=== PATIENT | male | born 1935 | race Caucasian/White ===

== ENCOUNTER 2019-08-01 14:36 | Inpatient (IN) | payer OTHER, MEDICAID ==
[~2019-08-01] VITALS: Ht 160 cm; Wt 59.0 kg
--- NOTE | 2019-08-01 14:41 | NUR ---
Patient to ER bed 04 to gown for evaluation. Side rails up.
[2019-08-01 14:42] VITALS: BP_SYST 148
--- NOTE | 2019-08-01 14:42 | NUR ---
Patient is awake, alert, and oriented x4. Patient was seen by his PCP physician last week for an incision to a sacral ulcer and sent home. Ulcer is not improving.
--- NOTE | 2019-08-01 14:44 | NUR ---
HUMBLE Castellanos at bedside examining patient.
[2019-08-01 15:17] LABS: BASOPHILS % (AUTO) 0.2 % (0.0-2.0); EOSINOPHILS % (AUTO) 0.2 % (0.0-4.0); HEMATOCRIT 36.7 % (36-54); HEMOGLOBIN 12.4 g/dL (14.0-18.0); LYMPHOCYTES # (AUTO) 1.1 K/uL (1.0-5.5); LYMPHOCYTES % (AUTO) 11.8 % (20.5-51.5); MEAN CORPUSCULAR HEMOGLOBIN 31 pg (27-31); MEAN CORPUSCULAR HGB CONC 34 % (32-36); MEAN CORPUSCULAR VOLUME 93 fL (79.0-98.0); MONOCYTES # (AUTO) 0.7 K/uL (0.0-1.0); MONOCYTES % (AUTO) 8.1 % (1.7-9.3); NEUTROPHILS # (AUTO) 7.2 K/uL (1.8-7.7); NEUTROPHILS % (AUTO) 79.7 % (40.0-70.0); PLATELET COUNT (AUTO) 235 K/uL (130-430); RED BLOOD CELL COUNT(AUTO) 3.95 MIL/uL (4.2-6.2); RED CELL DISTRIBUTION WIDTH 15.9 % (9.0-15.0)
--- NOTE | 2019-08-01 15:19 | NUR ---
2 unsuccessful IV attempts made. FESTUS Guerrero to attempt.
[2019-08-01 15:34] LABS: ANION GAP 8 (5-15); CHLORIDE 100 mmol/L (98-107); CREATININE 0.93 mg/dL (0.55-1.30); GLUCOSE 203 mg/dL (70-99); POTASSIUM 3.4 mmol/L (3.5-5.1); SODIUM SERUM 134 mmol/L (136-145); UREA NITROGEN, BLOOD 37 mg/dL (8-21)
[2019-08-01] MEDS ORDERED: GLU850 PO (15:39)
[2019-08-01] MEDS ORDERED: VITD2000 PO (15:39)
[2019-08-01] MEDS ORDERED: ASCO500T20 PO (15:39)
[2019-08-01] MEDS ORDERED: MULT-1089 PO (15:39)
[2019-08-01] MEDS ORDERED: GLUXR500 PO (15:39)
[2019-08-01] MEDS ORDERED: IBUP-1970 PO (15:39)
[2019-08-01] MEDS ORDERED: GLIP2.5T3 PO (15:39)
[2019-08-01 15:41] LABS: ALANINE AMINOTRANSFERASE 11 U/L (12-78); ALBUMIN 2.3 g/dL (3.4-4.8); ASPARTATE AMINOTRANSFERASE 11 U/L (10-37); TOTAL BILIRUBIN 0.5 mg/dL (0.0-1.0)
--- NOTE | 2019-08-01 15:42 | NUR ---
Medication reconciliation completed with information provided by son-in-law. Any prior medication reconciliation on file was reviewed and corrected.
[2019-08-01] MEDS ORDERED: PIPERACILLIN/TAZO 3.375 GM in NS 50 ML IV ONE (15:45)
[2019-08-01] MEDS ORDERED: NACL 0.9% 1,000 ML IV ONE ×2 (15:45→16:00)
[2019-08-01] MEDS ORDERED: INSULIN REGULAR, HUMAN 100 UNITS/ML, 10 ML VIAL SUBCUT ONE (16:00)
[2019-08-01] MEDS ORDERED: VANCOMYCIN HCL 1,000 MG in NS 250 ML IV ONE (16:00)
[2019-08-01] MEDS ORDERED: VANCOMYCIN HCL 1000 MG/VIAL IV ONE (16:09)
[2019-08-01] MEDS ORDERED: PIPERACILLIN/TAZOBACTAM 3.375 GM/VIAL (ZOSYN) IV ONE (16:09)
[2019-08-01] MEDS ORDERED: INSULIN REGULAR, HUMAN 10 UNITS/0.1 ML INJ ONE (16:09)
--- NOTE | 2019-08-01 16:23 | NUR ---
Patient will be admitted to care of Dr. Garcia. Admitted to Med/Surg unit. Will go to room 134A. Belongings list completed. Summary report printed. Report will be given at bedside.
--- NOTE | 2019-08-01 16:30 | NUR ---
Patient transferred via gurney with RN, EMT, patent/intact IV to room 134A.
--- NOTE | 2019-08-01 16:32 | NUR ---
ADMISSION NOTE Received patient from ER via suresh, received report from Lance MORTENSEN. Patient admitted with diagnosis of Sepsis, Scaral Wound. Patient and family oriented to hospital routine, call light, toileting and safety-they verbalized their understanding.
--- NOTE | 2019-08-01 16:35 | NUR ---
adm notes rec patient from er with dx of sepsis, accompanied by son. ivf infusing well on the l lforearm. no inifltration noted. made patient comfortable. resp easy and unlabored. aletha osb noted. bed to the lowest position and side rails up and locked. call light withn reached.
[2019-08-01 16:39] LABS: BILIRUBIN,URINE NEGATIVE (NEGATIVE); BLOOD, URINE 2+ (NEGATIVE); CLARITY/URINE SL CLOUDY (CLEAR); COLOR,URINE YELLOW (YELLOW); GLUCOSE,URINE NEGATIVE (NEGATIVE); KETONES,URINE NEGATIVE (NEGATIVE); LEUKOCYTE ESTERASE ,URINE 3+ (NEGATIVE); NITRITE, URINE NEGATIVE (NEGATIVE); PH,URINE 5.5 (5.0-8.0); PROTEIN URINE TRACE (NEGATIVE); UROBILINOGEN,URINE 0.2 (0.2-1.0)
[2019-08-01 16:55] LABS: RBC,URINE 20-50 /HPF (0-3)
[2019-08-01 16:56] LABS: BACTERIA,URINE FEW /HPF (None Seen); WBC,URINE 50-80 /HPF (0-3)
[2019-08-01 17:03] VITALS: BP_SYST 121
[2019-08-01 17:06] VITALS: BP_SYST 121
[2019-08-01] MEDS: PIPERACILLIN/TAZO 3.375/DEX-IS 50 ML IV ONE ×2 (17:15→21:08)
[2019-08-01] MEDS ORDERED: DEXTROSE 50% JECT 50 ML DISP.SYRIN IVP PRN (17:15)
[2019-08-01 20:40] VITALS: BP_SYST 154
--- NOTE | 2019-08-01 20:40 | NUR ---
INITIAL NOTES: PATIENT IN BED RESTING QUITELY WITH EYES CLOSE. AWAKENED WHEN CALLED HIS NAME..ORIENTED X3. FOLLOWS COMMAND.DENIES PAIN NOR CHEST PAIN.HARNESS BUILDER REPORTED HAS LARGE SACRAL WOUND AFTER GIVING HIM JULIA CARE DUE TO URINE INCONTINENT, WITH DRAINAGE AND NEEDS TO CHANGE DRESSING. VITAL SIGNS TAKEN. SALINE LOCK TO LEFT FA IN PLACE WITH EMPTY 3 IV BAGS.WILL MONITOR CLOSELY. DENIES PAIN.
--- NOTE | 2019-08-01 20:50 | NUR ---
ZOSYN IVPB NOT GIVEN ,CHECKED PREVIOUS EMAR GIVE IN ER. BLOOD SUGAR RESULT.,128MG/DL. OFFER SNACKS .REFUSE.
--- NOTE | 2019-08-01 23:25 | NUR ---
SACRAL WOUND PHOTO AND OTHER AREAS TAKEN. WOUND CARE RENDERD. SEE ASSESSMENT SECTION FOR MORE DETAILS.
--- NOTE | 2019-08-02 | NUR ---
BLOOD SUGAR 120MG/DL. HAS TOLERABLE WOUND PAIN. DUE ABX INFUSED.
[2019-08-02] MEDS: PIPERACILLIN/TAZO 3.375/DEX-IS 50 ML IV SCH ×5 (00:17→23:37)
[2019-08-02 00:18] VITALS: BP_SYST 126
[2019-08-02] MEDS: INSULIN REGULAR, HUMAN 100 UNITS/ML, 10 ML VIAL (humuLIN R) SUBCUT PRN ×3 (00:21→23:41)
--- NOTE | 2019-08-02 02:30 | NUR ---
REPOSITIONED FOR COMFORTS. NO DISTRESS. CALL LIGHT WITHIN REACH.
--- NOTE | 2019-08-02 05:00 | NUR ---
JULIA CARE DONE BG QUINTIN JENSEN. TURNED TO SIDE.
[2019-08-02 06:10] LABS: ANION GAP 8 (5-15); CHLORIDE 102 mmol/L (98-107); GLUCOSE 125 mg/dL (70-99); SODIUM SERUM 137 mmol/L (136-145); UREA NITROGEN, BLOOD 26 mg/dL (8-21)
[2019-08-02 06:28] LABS: POTASSIUM 2.8 mmol/L (3.5-5.1)
--- NOTE | 2019-08-02 06:30 | NUR ---
CLOSING: BLOOD SUGAR 136MG/DL. NO ACUTE CARDIOPULMONARY DISTRESS.ALL NEEDS WERE ATTENDED. CRITICAL VALUE OF K LEVEL 2.8. PAGED DR. JEREZ EMPLOYMENT RECRUITER FOR DR. BA.
--- NOTE | 2019-08-02 06:39 | NUR ---
PAGED DR. JEREZ PER NURS SPOKE TO FARIHA DIALED [phone]
--- NOTE | 2019-08-02 07:00 | NUR ---
REQUEST VAMP THROATER TO PAGE AGAIN ,SAID ITS >0700 .DR. BA WILL BE HERE SOON.
--- NOTE | 2019-08-02 07:10 | NUR ---
[address] DR. BA PER NURSE SPOKE TO TIAN DIALED [phone]
[2019-08-02] MEDS ORDERED: POTASSIUM CHLORIDE 20 MEQ TAB.PRT.SR PO ONE ×2 (07:30→11:30)
[2019-08-02 08:00] VITALS: BP_SYST 140
--- NOTE | 2019-08-02 08:00 | NUR ---
RN INITIAL NOTES RECEIVED PATIENT IN BED NOT IN ANY DISTRESS VERBALLY VERBALLY RESPONSIVE , IV HL TO LEFT HAND INFILTRATED ,RESP EVEN AND UNLABORED , PATIENT CAME IN WITH NON HEALING WOUND TO SACRAL , AWAITING FOR THE WOUND CONSULT AND WILL CONT CARE, DR BA ORDERED POTASSIUM SUPPLEMENT AND WILL GIVE 40 MEQ X 4 HOURS INTERVAL, EXPLAINED PLAN OF CARE TO PATIENT , PATIENT IS FOR SURGICAL CONSULT AND SPOKE WITH DR RAMIN MD SAID HE WILL COME AND SEE PATIENT LATER.
--- NOTE | 2019-08-02 08:04 | NUR ---
IV RE-INSERTION: Complaining of IV site leaking . Restarted on . Successful after 1 attempt to left forearm g.22. Will observe for any signs of infiltration.
[2019-08-02] MEDS: glipiZIDE XL 2.5 MG/TAB (GLUCOTROL XL) PO SCH (09:09)
--- NOTE | 2019-08-02 09:57 | NUR ---
CONSULT ID DR. PEREZ CALLED SPOKE GRACY DIALED [phone] BA
--- NOTE | 2019-08-02 09:58 | NUR ---
CONSULT SURGERY DR. FAUSTIN CALLED SPOKE TO MD DIALED [phone] BA
--- NOTE | 2019-08-02 10:09 | NUR ---
Nutrition Update Raleigh Scale 13 noted. Pt admitted for sepsis and large sacral wound. Diet: [facility] BMI: 20.4 kg/m2 RD to follow per nutrition care standards.
--- NOTE | 2019-08-02 12:30 | NUR ---
SWALLOW EVAL ORDERED PATIENT SWALLOW EVAL ORDERED AND NO SIGN OF ASPIRATION TO PUDDING EATS POORLY, WILL CONT TO OFFER MEALS
[2019-08-02 13:10] VITALS: BP_SYST 117
--- NOTE | 2019-08-02 13:39 | NUR ---
SWALLOW EVALUATION CALLED NASRIN LEFT A VOICE MESSAGE DIALED [phone]
--- NOTE | 2019-08-02 13:54 | NUR ---
Dietitian Recommendations * Recommend CCHO, mechanical soft, chopped diet w/ Glucerna BID, Johan BID, Prosource BID (ONS and modulars provide 740 kcal/day, 55 gm protein/day) YURIDIA, RD Please refer to Nutrition Assessment for details. Addendum: 08/02/19 at 1355 [address] Amended: Links added.
--- NOTE | 2019-08-02 15:20 | NUR ---
WOUND EVALUATION: Late note for 152 secondary to patient care. Wound Consult received from Dr. Garcia. Thank you, Dr. Garcia, for the consult. Patient received in a Jyothi Bed with an Isoflex MELISSA mattress with low air loss therapy initiated, awake, alert, and oriented. Patient is able to turn in bed with assist. Raleigh Score is a 13. Past Medical History: Diabetes Mellitus, Hypertension, bedbound status, wound debridement. Recent Labs: WBC 9.0, RBC 3.95, hemoglobin 12.4, hematocrit 36.7, potassium 2.8, BUN 26, creatinine 0.70, glucose 125, POC glucose 160, albumin 2.3. Microbiology: Blood culture results 2 in progress. Wound culture results in progress. Urine culture results in progress. MRSA screen results in progress. Intrinsic factors that delay wound healing: Diabetes Mellitus, Hypoalbuminemia. Extrinsic factors that delay wound healing: Decreased mobility. Wound Assessment: 1. Sacral area: Stage IV pressure ulcer, present on admission. Wound bed has 50% yellow slough, 40% pink tissue, 10% black slough. Mild odor, scant sanguineous drainage. Periwound has 100% underminin.0 cm at 12 oclock; 1.9 cm at 3 oclock; 2.6 cm at 6 oclock; 0.7 cm at 9 oclock. Surrounding tissue inferior to wound has dark discoloration and multiple small nonintact skin areas. Surrounding tissue around complete wound has dark discoloration. Wound measures 4.7 cm x 4.5 cm x 1.2 cm. 2. Right Sacral area: Pressure ulcer, present on admission (may be related to wound 1). Wound bed has 50% yellow tissue, 50% pink tissue. No odor, scant serous drainage. Periwound and surrounding tissue has dark discoloration and flaky skin. Wound measures 7.0 cm x 4.5 cm. 3. Left Sacral area: Pressure ulcer, present on admission (may be related to wound 1). Wound bed has 90% yellow tissue, 10% red tissue. No odor, scant serous drainage. Periwound and surrounding tissue has dark discoloration and flaky skin. Wound measures 4.0 cm x 6.0 cm. Recommend: Cleanse wounds with normal saline. Apply moisture barrier cream to livia-wounds. Cover wounds with non-adhesive foam dressings, secure with transparent dressings. Perform wound care daily, and as needed for dressing soiling or dislodgement. 4. Scrotum: Erythema from IAD, present on admission. Skin is intact. Recommend: Cleanse involved area with mild soap and water. Pat dry. Apply antifungal powder to involved area. Cradle scrotal area with Inter-Dry AG cloth and lift and elevate scrotum off of bed by pulling Inter-Dry AG through thighs. Apply antifungal powder BID. Change Inter-Dry AG cloth q 5 days and prn for soiling. 5. Right Plantar Foot: Dry flaky scaly skin, present on admission. 6. Left Plantar Foot: Dry flaky scaly skin, present on admission. Recommend: Cleanse feet with mild soap and water. Pat dry. Apply Eucerin cream to bilateral feet. Perform site care twice a day. 7. Right Heel: Blanchable erythema, present on admission. 8. Left Heel: Blanchable erythema, present on admission. Recommend: Float bilateral heels with HeeLift boots. Check HeeLift boots during hourly rounds to ensure that heels are floating, adjust HeeLift boots when necessary to ensure heels are floating. 9. Right Lateral Malleolus: Scar tissue with dark discolored skin, present on admission. 10. Right Distal Lateral Lower Extremity, Superior to Malleolus: Scar tissue with dark discolored skin, present on admission. Recommend: Cover sites with foam dressings. Change dressings and assessed sites daily, and when necessary for dressing soiling or dislodgment. Offload sites at all times. 11. Left Lateral Lower Extremity: Multiple, multiple dry scabs, present on admission. Recommend: Dressings needed. Continue to monitor site every shift. Also recommend: Encourage and assist patient with repositioning side to side only every 2 hours with pillow support and off-load pressure areas with pillows for pressure re-distribution. Offload, elevate and float bilateral heels with HeeLift boots. Perform skin care and monitor skin integrity Q shift. Use moisture barrier cream on buttocks and other moisture susceptible areas QID and as needed for soiling. Maintain patient on a low air-loss mattress.
[2019-08-02] MEDS ORDERED: VANCOMYCIN HCL 750 MG/NS 250 ML IV SCH (16:00)
--- NOTE | 2019-08-02 16:00 | NUR ---
WOUND NURSE CONSULT PATIENT SEEN PATIENT AND TREATMENT AND ASSESSMENT ,WILL CONT PLAN OF CARE , AWAITING FOR THE ID AND SURGEON SEE THE PATIENT
[2019-08-02 16:43] VITALS: BP_SYST 139
[2019-08-02] MEDS: MENTHOL/ZINC OXIDE 113 GM OINT. TP PRN ×2 (17:38→20:16)
[2019-08-02] MEDS: NYSTATIN 15 GM TOPICAL POWDER TP SCH ×2 (17:39→20:16)
[2019-08-02] MEDS: BALSAM PERU/CASTOR OIL 60 GM OINT...G. TP SCH (17:40)
[2019-08-02] MEDS: EMOLLIENT COMBINATION NO.73 78 GM CREAM..G. TP SCH ×2 (17:46→20:17)
--- NOTE | 2019-08-02 18:45 | NUR ---
END RN NOTES PATIENT CONT CARE [PATIENT WOUND DRESSING DONE , PATIENT IS ALERT AND AWARE PLAN OF CARE , PATIENT VISITED BY FAMILY AND AWARE THAT PATIENT STILL WAITING FOR ID CONSULT AN SURGEON , CONT ON IV ATB AND NO AR NOTED
--- NOTE | 2019-08-02 19:50 | NUR ---
INITIAL NOTES RECEIVED HANDOFF REPORT FROM OFFGOING NURSE AT THE BEDSIDE. PATIENT IS AAOX4, RESTING COMFORTABLY IN BED. NO SOB, NO ACUTE DISTRESS, NO COMPLAINTS OF PAIN AT THIS TIME. BED IS LOCKED, IN THE LOWEST POSITION, 2X SIDE RAILS UP, BED ALARM IS ON. CALL LIGHT IS WITHIN REACH. ENCOURAGED PATIENT TO CALL FOR ASSISTANCE. PLAN OF CARE DISCUSSED WITH THE PATIENT. WILL CONTINUE WITH PLAN OF CARE.
[2019-08-02 20:00] VITALS: BP_SYST 124
[2019-08-02] MEDS: VITAMIN B COMPLEX WITH C TAB/CAP PO SCH (20:30)
--- NOTE | 2019-08-02 22:00 | NUR ---
PATIENT IS RESTING COMFORTABLY IN BED. ASSISTED PATIENT TO TURN OFF THE TELEVISION PER PATIENT REQUEST. PATIENT STATES THAT HE WILL GO TO SLEEP NOW. CALL LIGHT WITHIN REACH. ENCOURAGED PATIENT TO CALL FOR ASSISTANCE.
--- NOTE | 2019-08-02 22:39 | NUR ---
PAGING DR STAPLES. DR JOYCE IS VISCOSE CELLAR CHARGE HAND. SPOKE WITH LAURA-DUONG. AWAITING FOR CALL BACK. PATIENT HAS CRITICAL BLOOD CULTURE, GRAM NEGATIVE RODS.
--- NOTE | 2019-08-03 01:20 | NUR ---
PATIENT RESTING COMFORTABLY IN BED, EYES CLOSED. BREATHING EVEN AND UNLABORED WITH VISIBLE CHEST RISE AND FALL NOTED. NO SOB, NO ACUTE DISTRESS, NO SIGNS OF PAIN OR FACIAL GRIMACING NOTED. BED IS LOCKED, IN THE LOWEST POSITION, 2X SIDE RAILS UP, BED ALARM IS ON. CALL LIGHT IS WITHIN REACH.
[2019-08-03 01:48] VITALS: BP_SYST 133
--- NOTE | 2019-08-03 04:14 | NUR ---
Patient resting comfortably in bed, eyes closed. Breathing even and unlabored with visible chest rise and fall noted. No SOB, no acute distress, no signs of pain or facial grimacing. Call light within reach.
--- NOTE | 2019-08-03 04:30 | NUR ---
Dr Montilla called the nurses station. Informed her that the patient has blood cultures gram negative mony. Also, per MD request, informed Dr Montilla that the patient is currently on Zosyn and Vanco, WBC 9.0, no fever, and was admitted on 08/01/2019. Dr Montilla stated no new orders at this time, and to let Dr Manzo or herself (Dr Montilla) know what the final culture results states. Charge nurse aware.
[2019-08-03] MEDS: PIPERACILLIN/TAZO 3.375/DEX-IS 50 ML IV SCH ×3 (05:26→17:51)
--- NOTE | 2019-08-03 05:30 | NUR ---
PATIENT PROVIDED WITH INCONTINENCE CARE NEEDED. NOW CLEAN AND DRY, RESTING COMFORTABLY IN BED. CALL LIGHT WITHIN REACH. ENCOURAGED PATIENT TO CALL FOR ASSISTANCE.
--- NOTE | 2019-08-03 06:50 | NUR ---
CLOSING NOTES PATIENT RESTING COMFORTABLY IN BED, AAOX4. NO SOB, NO ACUTE DISTRESS, NO COMPLAINTS OF PAIN AT THIS TIME. IV SITE INTACT, DRESSING CLEAN AND DRY, SALINE LOCKED. BED IS LOCKED, IN THE LOWEST POSITION, 2X SIDE RAILS UP, BED ALARM IS ON. CALL LIGHT IS WITHIN REACH. ENCOURAGED PATIENT TO CALL FOR ASSISTANCE. FALL AND SAFETY PRECAUTIONS MAINTAINED. ALL NEEDS HAVE BEEN MET DURING THIS SHIFT. WILL ENDORSE CARE TO ONCOMING DAYSHIFT NURSE
[2019-08-03 06:58] LABS: BASOPHILS % (AUTO) 0.4 % (0.0-2.0); EOSINOPHILS # (AUTO) 0.1 K/uL (0.0-0.4); EOSINOPHILS % (AUTO) 0.8 % (0.0-4.0); HEMATOCRIT 33.4 % (36-54); HEMOGLOBIN 11.2 g/dL (14.0-18.0); LYMPHOCYTES # (AUTO) 1.6 K/uL (1.0-5.5); LYMPHOCYTES % (AUTO) 21.7 % (20.5-51.5); MEAN CORPUSCULAR HEMOGLOBIN 31 pg (27-31); MEAN CORPUSCULAR HGB CONC 34 % (32-36); MEAN CORPUSCULAR VOLUME 92 fL (79.0-98.0); MONOCYTES # (AUTO) 0.9 K/uL (0.0-1.0); MONOCYTES % (AUTO) 12.4 % (1.7-9.3); NEUTROPHILS # (AUTO) 4.9 K/uL (1.8-7.7); NEUTROPHILS % (AUTO) 64.7 % (40.0-70.0); PLATELET COUNT (AUTO) 274 K/uL (130-430); RED BLOOD CELL COUNT(AUTO) 3.62 MIL/uL (4.2-6.2); RED CELL DISTRIBUTION WIDTH 15.5 % (9.0-15.0); WHITE BLOOD COUNT (AUTO) 7.5 K/uL (4.8-10.8)
[2019-08-03 07:20] LABS: ALANINE AMINOTRANSFERASE 12 U/L (12-78); ALBUMIN 1.9 g/dL (3.4-4.8); ANION GAP 5 (5-15); ASPARTATE AMINOTRANSFERASE 16 U/L (10-37); CHLORIDE 103 mmol/L (98-107); CREATININE 0.54 mg/dL (0.55-1.30); GLUCOSE 144 mg/dL (70-99); POTASSIUM 3.7 mmol/L (3.5-5.1); SODIUM SERUM 136 mmol/L (136-145); TOTAL BILIRUBIN 0.6 mg/dL (0.0-1.0); UREA NITROGEN, BLOOD 14 mg/dL (8-21)
[2019-08-03 08:00] VITALS: BP_SYST 130
--- NOTE | 2019-08-03 08:00 | NUR ---
RN INITIAL NOTES RECEIVED PATIENT IN BED ALERT QUIET AND VERBALLY RESPONSIVE , PATIENT DTR AT BEDSIDE ADVISED THAT MD DID NOT MAKE ROUNDS YET , IV HL NO SIGN OF DISTRESS, PATIENT WAS SEEN BY SURGEON LAST NIGHT AND WILL RUN BY ATTENDING DR FOR POSSIBLE DEBRIDEMENT PER SURGEON AND OR TIME, WILL INFORM DM ON ROUNDS , REPOSITIONED AND WOUND MGT ON GOING
[2019-08-03] MEDS: glipiZIDE XL 2.5 MG/TAB (GLUCOTROL XL) PO SCH (09:04)
[2019-08-03] MEDS: VITAMIN B COMPLEX WITH C TAB/CAP PO SCH (09:04)
[2019-08-03] MEDS: BALSAM PERU/CASTOR OIL 60 GM OINT...G. TP SCH (09:06)
[2019-08-03] MEDS: NYSTATIN 15 GM TOPICAL POWDER TP SCH ×2 (09:06→21:40)
[2019-08-03] MEDS: MENTHOL/ZINC OXIDE 113 GM OINT. TP PRN (09:06)
[2019-08-03] MEDS: EMOLLIENT COMBINATION NO.73 78 GM CREAM..G. TP SCH ×2 (09:12→21:41)
--- NOTE | 2019-08-03 10:00 | NUR ---
DR BA ROUNDS PATIENT SEEN BY DR BA AND DISCUSSED PATIENT CONDITION ORDERED FOR GENTAMYCIN AND PENDING WITH SURGICAL PLAN OF WOUND DEBRIDEMENT AND CONT WITH WOUND TX. NO PAIN COMPLAINED
[2019-08-03] MEDS ORDERED: GENTAMICIN SULFATE 300 MG in NS 100 ML IV ONE (10:30)
[2019-08-03 11:39] VITALS: BP_SYST 129
--- NOTE | 2019-08-03 12:00 | NUR ---
ROUNDS PATIENT AWAKE AND VERBAL NO PAIN COMPLAINED
--- NOTE | 2019-08-03 12:08 | NUR ---
S.T. SWALLOW EVAL SWALLOW EVAL COMPLETED. PT PRESENTS W/ MOD ORAL DYSPHAGIA W/ PROLONGED MASTICATION. NO S/S OF ASPIRATION. REC: MECH SOFT FINELY CHOPPED. THIN LIQUIDS OK. NURSE FREDO NOTIFIED. [id number] CJ [id number] CJ G8998 CJ NOMS LEVEL 5
[2019-08-03] MEDS: INSULIN REGULAR, HUMAN 100 UNITS/ML, 10 ML VIAL (humuLIN R) SUBCUT PRN ×2 (12:18→17:58)
--- NOTE | 2019-08-03 14:00 | NUR ---
WOUND DRESSING WOUND DRESSING DONE AND MEDS GIVEN NO AR/SE NOTED
[2019-08-03] MEDS: VANCOMYCIN HCL 750 MG/NS 250 ML IV SCH (16:59)
[2019-08-03] MEDS ORDERED: cloNIDine HCL 0.1 MG TABLET PO PRN (18:00)
[2019-08-03] MEDS ORDERED: ENALAPRILAT DIHYDRATE 1.25 MG/ML VIAL IVP PRN (18:00)
--- NOTE | 2019-08-03 18:03 | NUR ---
END RN NOTES PATIENT AND FAMILY MADE AWARE THAT PATIENT SURGICAL PLAN STILL PENDING D/T SURGEON SCHEDULE TO GO MATCH WITH OR SCHEDULE AVAILABILTY, CONT WITH IV ATB AND WOUND CONSULT REPOSITIONED, STILL WITH POOR [PO INTAKE
[2019-08-03 18:15] VITALS: BP_SYST 135
[2019-08-03 20:00] VITALS: BP_SYST 132
--- NOTE | 2019-08-03 20:00 | NUR ---
pt in bed v/s and assessment done same stable pm care given repositioned from side to side made comfortable,iv meds given po fluids tolerated well,no distress noted at this time.
--- NOTE | 2019-08-04 | NUR ---
pt repositioned made comfortable iv meds given
[2019-08-04] MEDS: PIPERACILLIN/TAZO 3.375/DEX-IS 50 ML IV SCH ×5 (00:42→23:43)
[2019-08-04] MEDS: INSULIN REGULAR, HUMAN 100 UNITS/ML, 10 ML VIAL (humuLIN R) SUBCUT PRN ×4 (00:51→23:45)
[2019-08-04 00:55] VITALS: BP_SYST 121
--- NOTE | 2019-08-04 04:00 | NUR ---
Iv meds given ,pt repositioned made comfortable ,pt sleeping at this time
[2019-08-04] MEDS: VANCOMYCIN HCL 750 MG/NS 250 ML IV SCH ×2 (04:23→15:06)
[2019-08-04 06:54] LABS: BASOPHILS % (AUTO) 0.6 % (0.0-2.0); EOSINOPHILS % (AUTO) 0.6 % (0.0-4.0); HEMOGLOBIN 10.6 g/dL (14.0-18.0); LYMPHOCYTES # (AUTO) 1.4 K/uL (1.0-5.5); LYMPHOCYTES % (AUTO) 17.7 % (20.5-51.5); MEAN CORPUSCULAR HEMOGLOBIN 32 pg (27-31); MEAN CORPUSCULAR HGB CONC 34 % (32-36); MEAN CORPUSCULAR VOLUME 93 fL (79.0-98.0); MONOCYTES # (AUTO) 0.8 K/uL (0.0-1.0); MONOCYTES % (AUTO) 9.4 % (1.7-9.3); NEUTROPHILS # (AUTO) 5.8 K/uL (1.8-7.7); NEUTROPHILS % (AUTO) 71.7 % (40.0-70.0); PLATELET COUNT (AUTO) 274 K/uL (130-430); RED BLOOD CELL COUNT(AUTO) 3.35 MIL/uL (4.2-6.2); RED CELL DISTRIBUTION WIDTH 15.5 % (9.0-15.0); WHITE BLOOD COUNT (AUTO) 8.1 K/uL (4.8-10.8)
--- NOTE | 2019-08-04 07:00 | NUR ---
report given to oncoming rn
[2019-08-04 07:01] LABS: ALANINE AMINOTRANSFERASE 12 U/L (12-78); ALBUMIN 1.7 g/dL (3.4-4.8); ANION GAP 4 (5-15); ASPARTATE AMINOTRANSFERASE 17 U/L (10-37); CALCIUM 8.5 mg/dL (8.4-11.0); CHLORIDE 102 mmol/L (98-107); CREATININE 0.57 mg/dL (0.55-1.30); GLUCOSE 306 mg/dL (70-99); POTASSIUM 3.6 mmol/L (3.5-5.1); SODIUM SERUM 134 mmol/L (136-145); TOTAL BILIRUBIN 0.5 mg/dL (0.0-1.0); UREA NITROGEN, BLOOD 26 mg/dL (8-21)
--- NOTE | 2019-08-04 08:00 | NUR ---
Opening note patient resting in bed, a/ox3-4, forgetful at times, reoriented to place, time and event, he verbalized understanding, assessment complete, IV line is patent and infusing well, educated patient asset protection associate light system and call for any assistance, he verbalized understanding, bed in lowest position, three side rails up, bed alarm on, call light within reach, fall and aspiration precautions in place.
--- NOTE | 2019-08-04 08:30 | NUR ---
Spoke with Dr. Proctor ordered for NPO after breakfast, surgery for wound debridement today at 1700.
[2019-08-04] MEDS: VITAMIN B COMPLEX WITH C TAB/CAP PO SCH (08:59)
[2019-08-04] MEDS: glipiZIDE XL 2.5 MG/TAB (GLUCOTROL XL) PO SCH (08:59)
[2019-08-04] MEDS: NYSTATIN 15 GM TOPICAL POWDER TP SCH ×2 (09:00→21:04)
[2019-08-04] MEDS: EMOLLIENT COMBINATION NO.73 78 GM CREAM..G. TP SCH ×2 (09:00→21:00)
[2019-08-04] MEDS: BALSAM PERU/CASTOR OIL 60 GM OINT...G. TP SCH (09:00)
--- NOTE | 2019-08-04 09:03 | NUR ---
Dr. Garcia rounds assessed patient, updated MD with plan of care for surgery today at 1700.
[2019-08-04] MEDS ORDERED: GENTAMICIN SULFATE 400 MG in NS 100 ML IV SCH (10:00)
[2019-08-04 10:23] VITALS: BP_SYST 108
--- NOTE | 2019-08-04 10:52 | NUR ---
Nutrition F/U RD reviewed pt's current EMR including diet Hx, physician notes, nursing notes, pertinent labs/meds/procedures, care trends and care activity. Current Diet Order: Mechanical soft Finely Chopped, Johan BID x 0 days Subjective information: Pt referred by motor vehicle clerk as previously ordered ONS were discontinued. Pt seen sleeping in bed, easily awakened w/ verbal stimuli. Pt reported of poor appetite. He was able to tolerate "little bit" of eggs, pancake, juice and peaches for breakfast. Per ST notes 08/03/19: pt presents w/ MOD oral dysphagia w/ prolonged mastication. Per surgical MD notes, pt needs to improve nutritional status and needs ONS. Per EMR, PO intake is fair. Packets of Johan at bedside, RD encouraged pt to take ONS and modulars. Pt also reported that he likes the Glucerna that was served previously, and pt was informed that RD will order it again. BG lab values were noted to be elevated and CCHO diet is warranted. Current PO intake: Fair (50% average of 3 meals 08/03/19) Estimated Energy Expenditure (kcals/day) 5233-1643 kcal/day (30-35 kcal/kg IBW for wound healing, sepsis) Estimated Protein Required (g/day) 84-112 gm/day (1.5-2 gm/kg IBW for wound healing, sepsis) Estimated Fluid Required (l/day) 1.7-2 L/day (1 ml/kcal/day for wound healing) Problem/Etiology/Signs/Symptoms Increased nutritional needs related to metabolic demands as evidenced by estimated nutritional requirements for wound healing and sepsis. (*ongoing) Inadequate nutrient intake r/t poor dentition and poor appetite AEB PO intake <75% of estimated needs and pt's report. (*new) Expected Outcomes/Goals - Monitor appetite and PO intakes w/ goal of pt meeting at least 75% of estimated nutritional needs, labs trending WNL, normal GI function, and skin integrity/wt maintenance Dietitian Recommendations * Recommend CCHO, mechanical soft, finely chopped diet w/ Glucerna BID, Johan BID, Prosource BID (ONS and modulars provide 740 kcal/day, 55 gm protein/day) * Consider Megace to stimulate appetite. * Encourage pt to increase PO intake. Follow Up High Risk: F/U in 2-3days
--- NOTE | 2019-08-04 11:01 | NUR ---
Dietitian Recommendations * Recommend CCHO, mechanical soft, finely chopped diet w/ Glucerna BID, Johan BID, Prosource BID (ONS and modulars provide 740 kcal/day, 55 gm protein/day) * Consider Megace to stimulate appetite. Please see Nutrition F/U note for details. BALDEV CAMPO Addendum: 08/04/19 at [address] Pt was put on NPO for lunch as pt is scheduled for surgery this afternoon. BALDEV s/w RN Connor re: diet rec w/ ONS and modular if/when diet is resumed. 1106 08/04/19. BALDEV CAMPO
--- NOTE | 2019-08-04 11:28 | NUR ---
RN rounds/family at bedside Patient resting in bed, awake, denies pain, continuing to monitor,patient's daughter Latha is at bedside, waiting to sign consent and speak with Dr. Proctor regarding surgery today, paged Dr. Proctor.
--- NOTE | 2019-08-04 11:35 | NUR ---
Dr. Proctor call back spoke with Latha regarding surgery, Latha agreeable and signed consent at this time.
--- NOTE | 2019-08-04 12:06 | NUR ---
RN rounds/Medication patient resting in bed, awake, denies pain, educated on medication uses and potential side effects, he verbalized understanding, blood glucose checked, patient is NPO, insulin coverage not provided yet, IV antibiotic hung and infusing well, IV line is patent no s/s of infiltration, continuing to monitor, bed in lowest position, three side rials up, bed alarm on, call light within reach, fall and aspiration precautions in place.
[2019-08-04 12:59] VITALS: BP_SYST 124
--- NOTE | 2019-08-04 13:00 | NUR ---
TRANSFER OF CARE TO JENELLE MORTENSEN.
--- NOTE | 2019-08-04 13:05 | NUR ---
[place] of Care Received bedside report from Connor RN for continuation of care. Received patient awake and resting in bed, denies any SOB or pain. No signs or symptoms of acute distress noted. Bed locked in lowest position, bed alarm on, and call light within reach. Fall and safety precautions in place.
--- NOTE | 2019-08-04 15:00 | NUR ---
Attempt to Insert Abad Catheter Attempted to insert abad catheter, met with resistance. on air director attempted a second time and met resistance. Will let MD know.
--- NOTE | 2019-08-04 15:15 | NUR ---
Family at bedside. All questions answered clearly and education provided.
[2019-08-04 16:54] VITALS: BP_SYST 117
--- NOTE | 2019-08-04 17:14 | NUR ---
Patient resting in bed, no signs or symptoms of acute distress noted. Family at bedside. Bed locked in lowest position and bed alarm on, call light within reach. Fall and safety precautions in place.
--- NOTE | 2019-08-04 19:05 | NUR ---
Closing Note Patient awake resting in bed, denies any SOB or pain. No signs or symptoms of acute distress noted. Bed locked in lowest position and call light within reach. Fall and safety precautions in place. Endorsed bedside report to Andriy MORTENSEN using SBAR approach for continuation of care. Family at bedside.
--- NOTE | 2019-08-04 19:30 | NUR ---
PM ASSESSMENT Received bedside SBAR report from dayshift RN. Pt in bed with eyes open resting comfortably, no signs of acute distress or discomfort noted. Family at bedside. Pt has a L FA 22g, saline locked, patent and c/d/i. Educated pt radiation monitor light and oriented pt to room. Pt doesn't verbalize any needs at this time. Bed is locked and in lowest position, call light within reach, will cont to monitor pt.
[2019-08-04] MEDS ORDERED: POLYMYXIN 500,000/BACIT.10,000 UNITS in NS IRR 1 L IR ONE (19:57)
[2019-08-04 20:00] VITALS: BP_SYST 129
[2019-08-04] MEDS ORDERED: fentaNYL CITRATE/PF 100 MCG/2 ML AMP IVP PRN (20:00)
[2019-08-04] MEDS ORDERED: ONDANSETRON HCL 4 MG/2 ML VIAL IVP PRN (20:00)
[2019-08-04] MEDS ORDERED: MIDAZOLAM HCL 5 MG/ML VIAL (VERSED) IV ONE (20:20)
[2019-08-04] MEDS ORDERED: BUPIVACAINE /PF 0.75% 10 ML VIAL INJ ONE (20:20)
[2019-08-04] MEDS ORDERED: LR 1,000 ML IV.SOLN IV ONE (20:20)
[2019-08-04] MEDS ORDERED: NS IRRIG SOLN 1000 ML IR ONE (20:20)
[2019-08-04] MEDS ORDERED: PROPOFOL 200MG/ 20ML VIAL (DIPRIVAN) IV ONE (20:20)
--- NOTE | 2019-08-04 21:00 | NUR ---
Pt came back from I&D at this time. No signs of acute distress or discomfort noted. Will cont to monitor.
--- NOTE | 2019-08-04 22:00 | NUR ---
PAZ CATH: #16 FR Paz catheter with 10 cc bulb inserted with use of sterile technique. Bulb inflated with 10 cc sterile water. Immediate return of urine noted. Bedside drainage bag placed below level of bladder. Pt tolerated procedure well. Will continue to monitor pt.
[2019-08-04 23:45] VITALS: BP_SYST 118
--- NOTE | 2019-08-04 23:50 | NUR ---
RT at bedside educating pt on incentive spirometer use. No signs of acute distress or discomfort noted. Will cont to monitor pt.
[2019-08-05 00:43] VITALS: BP_SYST 118
--- NOTE | 2019-08-05 01:40 | NUR ---
ROUNDS Patient asleep. No s/s of acute distress noted. Breathing even and unlabored. Berkowitz attached, secured, and draining by gravity. Call light with patient. Bed alarm on. Will continue to monitor.
[2019-08-05] MEDS: VANCOMYCIN HCL 750 MG/NS 250 ML IV SCH (03:09)
--- NOTE | 2019-08-05 04:00 | NUR ---
Pt saying he is feeling uncomfortable at this time. After repositioning the pt at this time, pt stated he feels better. No signs of acute distress or discomfort noted. Bed is locked and in lowest position, call light within reach, will continue to monitor pt.
[2019-08-05] MEDS: PIPERACILLIN/TAZO 3.375/DEX-IS 50 ML IV SCH ×3 (05:09→18:42)
--- NOTE | 2019-08-05 06:17 | NUR ---
CLOSING NOTES Patient in bed sleeping at this time. No s/s of acute distress noted. Breathing even and unlabored. HOB slightly raised. IV site patent, no signs of infiltration or infection noted. Skin warm and dry to touch, no s/s of hypoglycemia noted, accucheck was 128. Berkowitz attached, secured, and draining by gravity. Heel protector attached to both lower extremities. Heels offloaded with pillow. Patient was turned Q2H throughout shift. All needs met throughout shift. Fall and safety precautions maintained throughout shift. Will continue to monitor until patient care is endorsed to oncoming dayshift nurse.
--- NOTE | 2019-08-05 07:56 | NUR ---
INITIAL NOTE Bedside report received by package lift operator RN. Pt resting in bed, no acute distress noted, breathing even and unlabored. Call light within reach, bed in low and locked position with bed alarm on.
[2019-08-05] MEDS ORDERED: GENTAMICIN SULFATE 400 MG in NS 100 ML IV SCH (08:19)
--- NOTE | 2019-08-05 09:56 | NUR ---
RN ROUNDS PT RESTING IN BED, NO ACUTE DISTRESS NOTED, BREATHING EVEN AND UNLABORED.
[2019-08-05] MEDS: fentaNYL CITRATE/PF 100 MCG/2 ML AMP IVP PRN ×2 (10:09→16:27)
[2019-08-05] MEDS: glipiZIDE XL 2.5 MG/TAB (GLUCOTROL XL) PO SCH (10:25)
[2019-08-05] MEDS: VITAMIN B COMPLEX WITH C TAB/CAP PO SCH (10:25)
[2019-08-05] MEDS: EMOLLIENT COMBINATION NO.73 78 GM CREAM..G. TP SCH ×2 (10:26→21:00)
[2019-08-05] MEDS: NYSTATIN 15 GM TOPICAL POWDER TP SCH ×2 (10:26→21:00)
[2019-08-05] MEDS: BALSAM PERU/CASTOR OIL 60 GM OINT...G. TP SCH (10:26)
--- NOTE | 2019-08-05 11:58 | NUR ---
RN ROUNDS Pt awake, resting in bed. Pain controlled at this time. Family at bedside.
[2019-08-05] MEDS: INSULIN REGULAR, HUMAN 100 UNITS/ML, 10 ML VIAL (humuLIN R) SUBCUT PRN ×2 (12:13→18:45)
[2019-08-05 12:23] VITALS: BP_SYST 103
--- NOTE | 2019-08-05 13:56 | NUR ---
RN ROUNDS PT AWAKE, WATCHING TELEVISION. PAIN CONTROLLED AT THIS TIME.
--- NOTE | 2019-08-05 15:56 | NUR ---
RN ROUNDS PT RESTING IN BED, NO ACUTE DISTRESS NOTED, BREATHING EVEN AND UNLABORED.
[2019-08-05 16:40] VITALS: BP_SYST 113
--- NOTE | 2019-08-05 17:21 | NUR ---
CALLED FAMILY Spoke with daughter Charisma. Informed daughter of patient to be transferred to [facility], room [facility] at 1830. Daughter agreeable with transfer.
--- NOTE | 2019-08-05 17:30 | NUR ---
DC planning Called [facility] for transport authorization number [id number] number to call report at [facility] - [phone] Addendum: 08/05/19 at 1733 by Connor Ortega RN room 207B Addendum: 08/05/19 at 1836 by Connor Ortega RN PIPELAYER TIME IS 2130 TONIGHT.
--- NOTE | 2019-08-05 17:30 | NUR ---
PAGE DR. FAUSTIN Awaiting call back.
--- NOTE | 2019-08-05 18:15 | NUR ---
Second page for Dr. Proctor to get clearance for discharge to [facility], spoke with Sanjana. Addendum: 08/05/19 at 1828 by Connor Ortega RN Call back received, okay to discharge.
--- NOTE | 2019-08-05 18:33 | NUR ---
SPOKE W/ DR. FAUSTIN Informed MD of patients discharge order for today. New orders received in regards to wound care of sacral area, verified with telephone read back. Pt to be cleared for discharge transfer to SNF with new wound care dressing orders.
--- NOTE | 2019-08-05 19:10 | NUR ---
OPENING NOTES Bedside report received from dayshift nurse. Patient received lying in bed, awake, alert, and oriented. No s/s of acute distress noted. Breathing even and unlabored. IV site patent, no signs of infiltration or infection noted. Berkowitz attached, secured, and draining by gravity. Heel protectors attached, feet offloaded with pillow. Call light with patient. Bed alarm on. Bed is locked and at lowest position.
--- NOTE | 2019-08-05 19:20 | NUR ---
CLOSING NOTE BEDSIDE SBAR REPORT GIVEN TO RECEIVING RN. PT RESTING IN BED. DENIES ANY PAIN OR DISCOMFORT AT THIS TIME. PAZ DRAINING TO GRAVITY. CALL LIGHT WITHIN REACH, BED IN LOW AND LOCKED POSITION WITH BED ALARM ON. PT CARE ENDORSED TO FORENSIC ENGINEER, RN AWARE OF AMBULANCE PYRIDINE OPERATOR AT 2100, WOUND CARE ENDORSED TO FORENSIC ENGINEER RN.
--- NOTE | 2019-08-05 20:30 | NUR ---
PATIENT CLEANED/WOUNDCARE/PICTURES Patient cleaned and prepared at this time for discharge by INDUSTRY CONSULTANT and RN. Wound care conducted at this time, pictures were taken prior to discharge. Patient tolerated well. All needs met. Call light with patient. Bed alarm on. Will continue to monitor.
--- NOTE | 2019-08-05 20:35 | NUR ---
CALLED ALFREDO/CALLED DAUGHTER Spoke with FESTUS Downing, from [place], gave her report regarding patient. Patient to be admitted at Room 205A. Estimated time for fern picker is 2129. Attempted to call patient's daughter three times, no answer, voicemail left.
[2019-08-05 21:40] VITALS: BP_SYST 115
--- NOTE | 2019-08-05 22:20 | NUR ---
DISCHARGE Patient discharged at this time via gurney by [employer] construction driver. Report given to DEONTE Calvert. Patient shows no s/s of acute distress. Breathing even and unlabored. IV site at right forearm 22 gauge, patent, no signs of infiltration or infection noted. Berkowitz attached, secured, and draining by gravity. Interdry dressing in place. Heel protectors attached. All needs met throughout the shift. Fall safety precautions maintained throughout the shift. All personal belongings with patient.
[2019-08-06] MEDS ORDERED: GENTAMICIN SULFATE 400 MG in NS 100 ML IV SCH ×2
== END 2019-08-05 22:15 | DRG 871 ==
LOC: SED 14:36 → SMU 16:15
PROVIDERS: ADMIT Internal Medicine Hospice and Palliative Medicine; ATTEND Internal Medicine Hospice and Palliative Medicine
PROC: 0HB6XZZ Excision of Back Skin, External Approach (ICD-10-PCS; principal; 2019-08-04 16:30)
DX: A41.50 Gram-negative sepsis, unspecified (principal); L89.153 Pressure ulcer of sacral region, stage 3; E43 Unspecified severe protein-calorie malnutrition; N39.0 Urinary tract infection, site not specified; E11.9 Type 2 diabetes mellitus without complications; I10 Essential (primary) hypertension; B96.4 Proteus (mirabilis) (morganii) as the cause of diseases classified elsewhere; E86.0 Dehydration; Z79.899 Other long term (current) drug therapy; Z74.01 Bed confinement status
CPT/HCPCS: 36415; 71045; 80048; 80053; 80170-TC; 80202-TC; 81000-TC; 82962; 83036; 83605; 85025; 87040-TC; 87070-TC; 87081; 87086; 87186-TC; 88304; 92610-GN; 94010; 96365; 96366; 96367; 96372; 99285; J1580; J1815; J2250; J2543; J2704; J3010; J3370; J3490; J7030; J7050; J7120